=== PATIENT | female | born 1960 | race Caucasian/White ===

== ENCOUNTER 2020-11-25 12:58 | Inpatient (IN) | payer OTHER ==
[2020-11-25] MEDS ORDERED: Ondansetron PF 4 MG/2 ML Vial IVP PRN (14:13)
[2020-11-25] MEDS ORDERED: Dextrose 50% Abboject 50 ML SYRINGE SLOW IVP PRN (14:13)
[2020-11-25] MEDS ORDERED: Ondansetron ODT 4 MG TAB PO PRN (14:13)
[2020-11-25] MEDS ORDERED: HumaLOG 300 UNITS/3 ML VIAL SC PRN (14:13)
[2020-11-25] MEDS ORDERED: Acetaminophen 325 MG TAB PO PRN (14:13)
[2020-11-25] MEDS ORDERED: Dextrose 5% in Water 1,000 ML IV PRN (14:13)
[2020-11-25] MEDS ORDERED: Losartan 25 MG TAB PO SCH (14:15)
[2020-11-25] MEDS ORDERED: hydrALAZINE 20 MG/ML VIAL SLOW IVP PRN ×2 (17:39→17:40)
[2020-11-25 17:49] VITALS: BMI 40.1
[2020-11-25] MEDS: Betamethasone Val 0.1% Lotion 60 ML BOT TOP SCH (19:59)
[2020-11-25] MEDS: Melatonin 3 MG TAB PO PRN (22:22)
[2020-11-26 05:08] LABS: Hemoglobin A1c 8.3 % (4.0-6.0)
[2020-11-26 05:10] LABS: Hemoglobin 14.3 g/dL (12.0-16.0); Mean Corpuscular HGB CONC 32.5 g/dL (32.0-36.0); Mean Corpuscular Hemoglobin 29.5 pg (27.0-31.0); Mean Corpuscular Volume 90.8 fL (78.0-98.0); Mean Platelet Volume 8.6 fL (7.4-10.4); Platelet Count 198 thou/uL (130-400); RBC Distribution Width 11.6 % (11.5-14.5); Red Blood Cell (RBC) Count 4.83 mill/uL (4.20-5.40); White Blood Cell (WBC) Count 10.2 thou/uL (4.8-10.8)
[2020-11-26 05:24] LABS: ALT (SGPT) 29 U/L (8-55); AST (SGOT) 16 U/L (5-34); Albumin 3.8 g/dL (3.4-4.8); Alkaline Phosphatase 101 U/L (40-110); Anion Gap 12 mmol/L (10-20); BUN (Urea Nitrogen) 19 mg/dL (9.8-20.1); Bilirubin, Total 0.7 mg/dL (0.2-1.2); Calc. Creatinine Clearance 116 mL/min (70-130); Calcium 9.9 mg/dL (7.8-10.44); Carbon Dioxide 26 mmol/L (23-31); Cardiac Risk 3.2 (Less than 4.5); Chloride 102 mmol/L (98-107); Cholesterol 194 mg/dl (< 200 Desired); Globulin 2.8 g/dL (2.4-3.5); Glucose 237 mg/dL (80-115); HDL Cholesterol 61 mg/dL (>60 Neg Risk); LDL Cholesterol, Calculated 93 mg/dL; Potassium 3.6 mmol/L (3.5-5.1); Protein, Total 6.6 g/dL (5.8-8.1); Sodium 136 mmol/L (136-145); Triglycerides 198 mg/dL (Less than 150)
[2020-11-26 05:31] LABS: Band 4 % (5-11); Eosinophils 2 % (0-10); Lymphocytes 34 % (21-51); MDiff Complete? YES; Neutrophil 53 % (42-75); Reactive Lymphocytes 6 % (0-10)
[2020-11-26] MEDS: HumaLOG 300 UNITS/3 ML VIAL SC PRN ×2 (05:52→11:26)
[2020-11-26] MEDS: metFORMIN 500 MG TAB PO SCH (08:55)
[2020-11-26] MEDS: Cyclobenzaprine 10 MG TAB PO SCH ×3 (08:56→21:13)
[2020-11-26] MEDS: Aspirin 81 mg Enteric Coated Tablet PO SCH (08:56)
[2020-11-26] MEDS: Betamethasone Val 0.1% Lotion 60 ML BOT TOP SCH ×2 (08:57→21:18)
[2020-11-26] MEDS ORDERED: Losartan 25 MG TAB PO SCH ×2 (09:00→12:45)
[2020-11-26] MEDS ORDERED: glipiZIDE 5 MG TAB PO SCH (12:45)
[2020-11-26] MEDS ORDERED: Atorvastatin Calcium 40 MG TAB PO SCH (21:00)
[2020-11-26] MEDS ORDERED: Atorvastatin Calcium 20 MG TAB PO SCH (21:00)
[2020-11-26] MEDS: Melatonin 3 MG TAB PO PRN (21:18)
[2020-11-27] MEDS: HumaLOG 300 UNITS/3 ML VIAL SC PRN (06:29)
[2020-11-27] MEDS ORDERED: glipiZIDE 5 MG TAB PO SCH (07:30)
[2020-11-27] MEDS: Cyclobenzaprine 10 MG TAB PO SCH (08:23)
[2020-11-27] MEDS: Aspirin 81 mg Enteric Coated Tablet PO SCH (08:23)
[2020-11-27] MEDS: Betamethasone Val 0.1% Lotion 60 ML BOT TOP SCH (08:24)
[2020-11-27] MEDS: metFORMIN 500 MG TAB PO SCH (08:24)
[2020-11-27] MEDS ORDERED: Losartan 25 MG TAB PO SCH (09:00)
[2020-11-27 11:46] VITALS: BP 129/64; TEMP 97.6
== END 2020-11-27 14:05 | disposition home or self-care (01) | DRG 65 ==
LOC: ERS 12:58 → 2SE 13:51
PROVIDERS: ADMIT Family Medicine; ATTEND Family Medicine
DX: I63.81 Other cerebral infarction due to occlusion or stenosis of small artery (principal); I16.1 Hypertensive emergency; G81.92 Hemiplegia, unspecified affecting left dominant side; I10 Essential (primary) hypertension; E11.9 Type 2 diabetes mellitus without complications; Z20.822 Contact with and (suspected) exposure to COVID-19; E78.5 Hyperlipidemia, unspecified; R29.702 NIHSS score 2; Z88.5 Allergy status to narcotic agent; Z79.84 Long term (current) use of oral hypoglycemic drugs; Z79.899 Other long term (current) drug therapy; Z91.120 Patient's intentional underdosing of medication regimen due to financial hardship
CPT/HCPCS: 36415; 36416; 70551; 80053; 80061; 83036; 84443; 85007; 85027; 93306; 96365; J1815

== ENCOUNTER 2024-01-23 19:19 | Inpatient (IN) | payer MEDICARE, SELFPAY ==
[2024-01-23 20:07] LABS: #Basophils 0.08 10x3/uL (0.0-0.2); %Basophils 0.6 % (0.0-1.0); %Lymphocytes 18.7 % (21.0-51.0); %Monocytes 3.7 % (0.0-10.0); %Neutrophils 72.5 % (42.0-75.0); Hematocrit 39.1 % (36.0-47.0); Hemoglobin 13.1 g/dL (12.0-16.0); Mean Corpuscular HGB CONC 33.5 g/dL (32.0-36.0); Mean Corpuscular Hemoglobin 30.8 pg (27.0-31.0); Mean Corpuscular Volume 91.8 fL (78.0-98.0); Mean Platelet Volume 11.7 fL (7.4-10.4); Platelet Count 173 10x3/uL (130-400); Red Blood Cell (RBC) Count 4.26 mill/uL (4.20-5.40)
[2024-01-23 20:22] LABS: INR-International Normal Ratio 0.9; Prothrombin Time 12.6 sec (12.0-14.7)
[2024-01-23 20:23] LABS: ALT (SGPT) 21 U/L (8-55); AST (SGOT) 13 U/L (5-34); Albumin 3.4 g/dL (3.4-4.8); Alkaline Phosphatase 105 U/L (40-110); Anion Gap 18 mmol/L (10-20); BUN (Urea Nitrogen) 17 mg/dL (9.8-20.1); Bilirubin, Total 0.5 mg/dL (0.2-1.2); Calc. Creatinine Clearance 0 mL/min (70-130); Calcium 9.5 mg/dL (7.8-10.44); Carbon Dioxide 25 mmol/L (23-31); Chloride 103 mmol/L (98-107); Estimated GFR 84; Globulin 3.2 g/dL (2.4-3.5); Glucose 218 mg/dL (80-115); PTT 24.1 sec (22.9-36.1); Potassium 3.4 mmol/L (3.5-5.1); Protein, Total 6.6 g/dL (5.8-8.1); Sodium 143 mmol/L (136-145)
[2024-01-23 20:30] LABS: Troponin I Less than 0.010 ng/mL (< 0.028)
[2024-01-23] MEDS ORDERED: Aspirin Chewable 81 MG TAB ONE (21:45)
[2024-01-23] MEDS ORDERED: Glucagon 1 MG/ML KIT IM PRN (22:14)
[2024-01-23] MEDS ORDERED: Ondansetron PF 4 MG/2 ML Vial IVP PRN (22:14)
[2024-01-23] MEDS ORDERED: Dextrose 50% Abboject 50 ML SYRINGE SLOW IVP PRN (22:14)
[2024-01-23] MEDS ORDERED: Ondansetron ODT 4 MG TAB PO PRN (22:14)
[2024-01-23] MEDS ORDERED: Dextrose 5% in Water 1,000 ML IV PRN (22:16)
[2024-01-23 22:35] LABS: Magnesium 1.8 mg/dL (1.6-2.6)
[2024-01-24] MEDS: Potassium Chloride 20 MEQ TAB PO SCH ×2 (00:12→12:46)
[2024-01-24] MEDS: DULoxetine 30 MG CAP PO SCH ×2 (00:12→20:26)
[2024-01-24] MEDS: traZODone HCl 50 MG TAB PO PRN (01:25)
[2024-01-24] MEDS: Insulin Lispro 100 UNIT/ML 10 ML VIAL SC PRN (01:26)
[2024-01-24 01:47] VITALS: BMI 42.4
[2024-01-24 05:28] LABS: #Basophils 0.08 10x3/uL (0.0-0.2); %Basophils 0.6 % (0.0-1.0); %Eosinophils 3.8 % (0.0-10.0); %Lymphocytes 28.2 % (21.0-51.0); %Monocytes 5.3 % (0.0-10.0); %Neutrophils 61.7 % (42.0-75.0); Hematocrit 37.3 % (36.0-47.0); Hemoglobin 12.7 g/dL (12.0-16.0); Mean Corpuscular Hemoglobin 30.2 pg (27.0-31.0); Mean Corpuscular Volume 88.6 fL (78.0-98.0); Mean Platelet Volume 12.3 fL (7.4-10.4); Platelet Count 153 10x3/uL (130-400); RBC Distribution Width 12.1 % (11.5-14.5); Red Blood Cell (RBC) Count 4.21 mill/uL (4.20-5.40)
[2024-01-24 05:41] LABS: Anion Gap 15 mmol/L (10-20); BUN (Urea Nitrogen) 16 mg/dL (9.8-20.1); Calc. Creatinine Clearance 114 mL/min (70-130); Calcium 9.1 mg/dL (7.8-10.44); Carbon Dioxide 25 mmol/L (23-31); Cardiac Risk 2.7 (Less than 4.5); Chloride 104 mmol/L (98-107); Cholesterol 119 mg/dl (< 200 Desired); Estimated GFR 83; Glucose 148 mg/dL (80-115); HDL Cholesterol 44 mg/dL (>60 Neg Risk); LDL Cholesterol, Calculated 49 mg/dL; Potassium 3.4 mmol/L (3.5-5.1); Sodium 141 mmol/L (136-145); Triglycerides 130 mg/dL (Less than 150)
[2024-01-24] MEDS ORDERED: glipiZIDE 5 MG TAB PO SCH (07:30)
[2024-01-24] MEDS ORDERED: Aspirin 81 mg Enteric Coated Tablet PO SCH (09:00)
[2024-01-24] MEDS ORDERED: Electrolyte Replacement Protocol 1 EACH FS SCH (09:45)
[2024-01-24] MEDS ORDERED: Iopamidol 370 76% 100 ML VIAL ONE (11:59)
[2024-01-24] MEDS: Magnesium 2 GM/50 ML(in water) 2 GM in Premix 1 BAG IVPB SCH (12:46)
[2024-01-24] MEDS: Cholecalciferol 1,000 UNITS (25 MCG) TAB PO SCH (12:46)
[2024-01-24] MEDS: Acetaminophen 325 MG TAB PO PRN (12:56)
[2024-01-24 16:33] LABS: Potassium 3.5 mmol/L (3.5-5.1)
[2024-01-24] MEDS: Aspirin 81 mg Enteric Coated Tablet PO SCH (20:24)
[2024-01-24] MEDS: Atorvastatin Calcium 40 MG TAB PO SCH (20:26)
[2024-01-24] MEDS ORDERED: Atorvastatin Calcium 40 MG TAB PO SCH (21:00)
[2024-01-25] MEDS: Potassium Chloride 20 MEQ TAB PO SCH (00:24)
[2024-01-25 04:35] LABS: ALT (SGPT) 22 U/L (8-55); AST (SGOT) 13 U/L (5-34); Albumin 3.3 g/dL (3.4-4.8); Alkaline Phosphatase 105 U/L (40-110); Anion Gap 13 mmol/L (10-20); BUN (Urea Nitrogen) 17 mg/dL (9.8-20.1); Bilirubin, Total 0.8 mg/dL (0.2-1.2); Calc. Creatinine Clearance 117 mL/min (70-130); Calcium 9.2 mg/dL (7.8-10.44); Carbon Dioxide 24 mmol/L (23-31); Chloride 103 mmol/L (98-107); Estimated GFR 86; Globulin 3.1 g/dL (2.4-3.5); Glucose 183 mg/dL (80-115); Magnesium 2.1 mg/dL (1.6-2.6); Potassium 3.9 mmol/L (3.5-5.1); Protein, Total 6.4 g/dL (5.8-8.1); Sodium 136 mmol/L (136-145)
[2024-01-25 05:01] LABS: #Basophils 0.09 10x3/uL (0.0-0.2); %Basophils 0.7 % (0.0-1.0); %Eosinophils 3.4 % (0.0-10.0); %Lymphocytes 30.1 % (21.0-51.0); %Monocytes 3.8 % (0.0-10.0); %Neutrophils 61.6 % (42.0-75.0); Hematocrit 39.2 % (36.0-47.0); Mean Corpuscular HGB CONC 33.2 g/dL (32.0-36.0); Mean Corpuscular Hemoglobin 30.4 pg (27.0-31.0); Mean Corpuscular Volume 91.6 fL (78.0-98.0); Mean Platelet Volume 11.9 fL (7.4-10.4); Platelet Count 181 10x3/uL (130-400); RBC Distribution Width 11.9 % (11.5-14.5); Red Blood Cell (RBC) Count 4.28 mill/uL (4.20-5.40)
[2024-01-25] MEDS: Insulin Lispro 100 UNIT/ML 10 ML VIAL SC PRN (13:30)
[2024-01-26 05:15] LABS: #Basophils 0.09 10x3/uL (0.0-0.2); %Basophils 0.9 % (0.0-1.0); %Eosinophils 4.5 % (0.0-10.0); %Lymphocytes 28.7 % (21.0-51.0); %Monocytes 3.6 % (0.0-10.0); %Neutrophils 61.8 % (42.0-75.0); Hematocrit 39.1 % (36.0-47.0); Hemoglobin 13.3 g/dL (12.0-16.0); Mean Corpuscular Hemoglobin 29.9 pg (27.0-31.0); Mean Corpuscular Volume 87.9 fL (78.0-98.0); Mean Platelet Volume 11.8 fL (7.4-10.4); Platelet Count 142 10x3/uL (130-400); RBC Distribution Width 11.9 % (11.5-14.5); Red Blood Cell (RBC) Count 4.45 mill/uL (4.20-5.40)
[2024-01-26 05:54] LABS: ALT (SGPT) 21 U/L (8-55); AST (SGOT) 14 U/L (5-34); Albumin 3.3 g/dL (3.4-4.8); Alkaline Phosphatase 102 U/L (40-110); Anion Gap 12 mmol/L (10-20); BUN (Urea Nitrogen) 15 mg/dL (9.8-20.1); Bilirubin, Total 0.8 mg/dL (0.2-1.2); Calc. Creatinine Clearance 124 mL/min (70-130); Calcium 9.2 mg/dL (7.8-10.44); Carbon Dioxide 25 mmol/L (23-31); Chloride 103 mmol/L (98-107); Estimated GFR 91; Globulin 3.1 g/dL (2.4-3.5); Glucose 192 mg/dL (80-115); Potassium 3.4 mmol/L (3.5-5.1); Protein, Total 6.4 g/dL (5.8-8.1); Sodium 137 mmol/L (136-145)
[2024-01-26] MEDS: Potassium Chloride 20 MEQ TAB PO SCH (08:51)
[2024-01-27 06:13] LABS: Chloride 106 mmol/L (98-107); Potassium 4.1 mmol/L (3.5-5.1); Sodium 135 mmol/L (136-145)
[2024-01-27 06:14] LABS: Albumin 3.8 g/dL (3.4-4.8); Calcium 9.7 mg/dL (7.8-10.44); Glucose 201 mg/dL (80-115)
[2024-01-27 06:15] LABS: Globulin 3.4 g/dL (2.4-3.5); Protein, Total 7.2 g/dL (5.8-8.1)
[2024-01-27 06:16] LABS: Anion Gap 20 mmol/L (10-20); Carbon Dioxide 13 mmol/L (23-31)
[2024-01-27 06:17] LABS: Alkaline Phosphatase 110 U/L (40-110); Bilirubin, Total 0.8 mg/dL (0.2-1.2)
[2024-01-27 06:18] LABS: Calc. Creatinine Clearance 122 mL/min (70-130); Estimated GFR 90
[2024-01-27 06:19] LABS: BUN (Urea Nitrogen) 15 mg/dL (9.8-20.1)
[2024-01-27 06:20] LABS: ALT (SGPT) 28 U/L (8-55); AST (SGOT) 20 U/L (5-34)
[2024-01-27] MEDS ORDERED: Rocuronium Bromide 10 MG/ML (10ML VIAL) ONE (06:36)
[2024-01-27] MEDS ORDERED: fentaNYL PF 100 MCG/2 ML SYRINGE ONE ×2 (06:36→07:55)
[2024-01-27] MEDS ORDERED: PROPOFOL 20 ML ONE (06:36)
[2024-01-27] MEDS ORDERED: Heparin 5,000 UNITS/ML VIAL ONE (06:44)
[2024-01-27] MEDS ORDERED: EPINEPHrine 1 MG/ML VIAL ONE (06:44)
[2024-01-27] MEDS ORDERED: Bupivacaine PF 0.5% 30 ML VIAL ONE (06:44)
[2024-01-27] MEDS ORDERED: Sodium Chloride 0.9% 100 ML ONE ×2 (07:22→12:36)
[2024-01-27] MEDS ORDERED: CEFAZOLIN 2 GM VIAL ONE ×2 (07:22→12:36)
[2024-01-27] MEDS ORDERED: PHENYLEPHRINE-NS 100 MCG/ML 10 ML SYRINGE ONE ×2 (07:50→08:47)
[2024-01-27] MEDS ORDERED: Phenylephrine 10 MG/ML VIAL ONE (08:03)
[2024-01-27] MEDS ORDERED: Heparin 10,000 UNITS/ 10 ML VIAL ONE (08:04)
[2024-01-27] MEDS ORDERED: Sodium Chloride 0.9% 250 ML 250 ML ONE (08:04)
[2024-01-27] MEDS ORDERED: Sodium Chloride 0.9% 200 ML ONE (08:04)
[2024-01-27] MEDS ORDERED: Protamine Sulfate 50 MG/5 ML VIAL ONE (08:43)
[2024-01-27] MEDS ORDERED: hydrALAZINE 20 MG/ML VIAL ONE ×2 (09:03→09:12)
[2024-01-27] MEDS ORDERED: SUGAMMADEX SODIUM 200 MG/2 ML VIAL ONE ×2 (09:03→09:41)
[2024-01-27] MEDS ORDERED: Ondansetron PF 4 MG/2 ML Vial ONE (09:03)
[2024-01-27] MEDS ORDERED: Metoclopramide HCl 10 MG (2 mL) VIAL ONE (09:03)
[2024-01-27] MEDS ORDERED: fentaNYL 50 mcg/mL 1 mL Vial ONE (09:17)
[2024-01-27] MEDS ORDERED: Ondansetron HCl/PF 4 MG/2 ML Vial IVP PRN (09:26)
[2024-01-27] MEDS ORDERED: Labetalol HCl 100 MG/20 ML VIAL ONE (09:35)
[2024-01-27] MEDS ORDERED: CEFAZOLIN 2 GM in Sodium Chloride 0.9% 100 ML IVPB SCH (12:26)
[2024-01-27] MEDS ORDERED: Nitroglycerin 50 MG/250 ML BOT 250 ML IVPB PRN (12:26)
[2024-01-27] MEDS ORDERED: Ondansetron PF 4 MG/2 ML Vial IVP PRN (12:26)
[2024-01-27] MEDS ORDERED: fentaNYL 50 mcg/mL 1 mL Vial SLOW IVP PRN (12:26)
[2024-01-27] MEDS ORDERED: Ipratropium/Albuterol 3 ML NEB NEB PRN (12:26)
[2024-01-27] MEDS ORDERED: HumaLOG 300 UNITS/3 ML VIAL ONE (12:33)
[2024-01-27] MEDS ORDERED: Meperidine HCl/PF 25 MG (1 mL) VIAL ONE (13:25)
[2024-01-27] MEDS: Sodium Chloride 0.9% 1,000 ML IV SCH (13:50)
[2024-01-27] MEDS ORDERED: Phenylephrine 40 MG/NS 250 ML 40 MG in Premix 1 BAG IVPB PRN (14:16)
[2024-01-27] MEDS: Ipratropium/Albuterol 3 ML NEB NEB SCH (14:19)
[2024-01-27] MEDS: traMADol HCl 50 MG TAB PO PRN (15:06)
[2024-01-27] MEDS: Labetalol HCl 100 MG/20 ML VIAL SLOW IVP PRN (20:08)
[2024-01-27] MEDS: CEFAZOLIN 2 GM in Sodium Chloride 0.9% 100 ML IVPB SCH (22:19)
[2024-01-28 10:21] LABS: #Basophils 0.06 10x3/uL (0.0-0.2); %Basophils 0.4 % (0.0-1.0); %Eosinophils 2.2 % (0.0-10.0); %Lymphocytes 20.1 % (21.0-51.0); %Monocytes 4.2 % (0.0-10.0); %Neutrophils 72.5 % (42.0-75.0); Hematocrit 36.3 % (36.0-47.0); Mean Corpuscular HGB CONC 33.1 g/dL (32.0-36.0); Mean Corpuscular Hemoglobin 30.6 pg (27.0-31.0); Mean Corpuscular Volume 92.6 fL (78.0-98.0); Mean Platelet Volume 11.2 fL (7.4-10.4); Platelet Count 147 10x3/uL (130-400); RBC Distribution Width 12.5 % (11.5-14.5); Red Blood Cell (RBC) Count 3.92 mill/uL (4.20-5.40)
[2024-01-28 10:36] LABS: ALT (SGPT) 19 U/L (8-55); AST (SGOT) 12 U/L (5-34); Alkaline Phosphatase 98 U/L (40-110); Anion Gap 14 mmol/L (10-20); BUN (Urea Nitrogen) 11 mg/dL (9.8-20.1); Bilirubin, Total 0.6 mg/dL (0.2-1.2); Calc. Creatinine Clearance 111 mL/min (70-130); Calcium 8.4 mg/dL (7.8-10.44); Carbon Dioxide 23 mmol/L (23-31); Chloride 103 mmol/L (98-107); Estimated GFR 84; Glucose 208 mg/dL (80-115); Potassium 3.6 mmol/L (3.5-5.1); Sodium 136 mmol/L (136-145)
[2024-01-28] MEDS ORDERED: Clopidogrel Bisulfate 75 MG TAB PO SCH (14:57)
[2024-01-28] MEDS: Clopidogrel Bisulfate 75 MG TAB PO SCH (16:05)
[2024-01-28] MEDS: hydrALAZINE 20 MG/ML VIAL SLOW IVP PRN (20:46)
[2024-01-29 06:29] LABS: #Basophils 0.05 10x3/uL (0.0-0.2); %Basophils 0.4 % (0.0-1.0); %Eosinophils 2.1 % (0.0-10.0); %Lymphocytes 16.6 % (21.0-51.0); %Monocytes 3.9 % (0.0-10.0); %Neutrophils 76.5 % (42.0-75.0); Hematocrit 35.7 % (36.0-47.0); Hemoglobin 11.8 g/dL (12.0-16.0); Mean Corpuscular HGB CONC 33.1 g/dL (32.0-36.0); Mean Corpuscular Hemoglobin 30.5 pg (27.0-31.0); Mean Corpuscular Volume 92.2 fL (78.0-98.0); Mean Platelet Volume 11.3 fL (7.4-10.4); Platelet Count 146 10x3/uL (130-400); RBC Distribution Width 12.6 % (11.5-14.5); Red Blood Cell (RBC) Count 3.87 mill/uL (4.20-5.40)
[2024-01-29 06:48] LABS: ALT (SGPT) 16 U/L (8-55); AST (SGOT) 11 U/L (5-34); Alkaline Phosphatase 96 U/L (40-110); Anion Gap 11 mmol/L (10-20); BUN (Urea Nitrogen) 10 mg/dL (9.8-20.1); Bilirubin, Total 0.8 mg/dL (0.2-1.2); Calc. Creatinine Clearance 121 mL/min (70-130); Calcium 8.9 mg/dL (7.8-10.44); Carbon Dioxide 25 mmol/L (23-31); Chloride 106 mmol/L (98-107); Estimated GFR 93; Globulin 3.1 g/dL (2.4-3.5); Glucose 222 mg/dL (80-115); Potassium 3.8 mmol/L (3.5-5.1); Protein, Total 6.1 g/dL (5.8-8.1); Sodium 138 mmol/L (136-145)
[2024-01-29] MEDS: Clopidogrel Bisulfate 75 MG TAB PO SCH (10:40)
[2024-01-29] MEDS: Losartan 25 MG TAB PO SCH (16:31)
[2024-01-30 04:52] LABS: #Basophils 0.04 10x3/uL (0.0-0.2); %Basophils 0.4 % (0.0-1.0); %Eosinophils 3.2 % (0.0-10.0); %Lymphocytes 22.5 % (21.0-51.0); %Monocytes 4.8 % (0.0-10.0); %Neutrophils 68.5 % (42.0-75.0); Hematocrit 36.3 % (36.0-47.0); Mean Corpuscular HGB CONC 33.1 g/dL (32.0-36.0); Mean Corpuscular Hemoglobin 29.9 pg (27.0-31.0); Mean Corpuscular Volume 90.3 fL (78.0-98.0); Mean Platelet Volume 11.6 fL (7.4-10.4); Platelet Count 147 10x3/uL (130-400); RBC Distribution Width 12.4 % (11.5-14.5); Red Blood Cell (RBC) Count 4.02 mill/uL (4.20-5.40)
[2024-01-30 05:24] LABS: ALT (SGPT) 14 U/L (8-55); AST (SGOT) 10 U/L (5-34); Albumin 2.8 g/dL (3.4-4.8); Alkaline Phosphatase 97 U/L (40-110); Anion Gap 12 mmol/L (10-20); BUN (Urea Nitrogen) 12 mg/dL (9.8-20.1); Bilirubin, Total 0.8 mg/dL (0.2-1.2); Calc. Creatinine Clearance 126 mL/min (70-130); Calcium 8.7 mg/dL (7.8-10.44); Carbon Dioxide 22 mmol/L (23-31); Chloride 106 mmol/L (98-107); Estimated GFR 96; Glucose 208 mg/dL (80-115); Potassium 3.6 mmol/L (3.5-5.1); Protein, Total 5.8 g/dL (5.8-8.1); Sodium 136 mmol/L (136-145)
[2024-01-30] MEDS: metFORMIN 500 MG TAB PO SCH ×2 (13:15→17:38)
[2024-01-30] MEDS: Losartan 25 MG TAB PO SCH (13:16)
[2024-01-30] MEDS: Acetaminophen 325 MG TAB PO PRN (22:02)
[2024-01-31 17:36] VITALS: BP 144/76; TEMP 97.6
[2024-02-01 09:55] VITALS: BMI 40.8
== END 2024-01-31 21:25 | disposition home or self-care (01) | DRG 38 ==
LOC: ERS 19:19 → 2SE 21:18 → OBSVTOIN 01-24 15:22 → CCU 01-27 06:50 → 2SE 01-28 12:28
PROVIDERS: ADMIT Student in an Organized Health Care Education/Training Program; ATTEND Internal Medicine
PROC: 03CL0ZZ Extirpation of Matter from Left Internal Carotid Artery, Open Approach (ICD-10-PCS; principal; 2024-01-27)
PROC: 03CJ0ZZ Extirpation of Matter from Left Common Carotid Artery, Open Approach (ICD-10-PCS; 2024-01-27)
PROC: 03UJ0KZ Supplement Left Common Carotid Artery with Nonautologous Tissue Substitute, Open Approach (ICD-10-PCS; 2024-01-27)
PROC: 03UL0KZ Supplement Left Internal Carotid Artery with Nonautologous Tissue Substitute, Open Approach (ICD-10-PCS; 2024-01-27)
DX: I63.9 Cerebral infarction, unspecified (principal); G81.94 Hemiplegia, unspecified affecting left nondominant side; E11.9 Type 2 diabetes mellitus without complications; I10 Essential (primary) hypertension; E87.6 Hypokalemia; I65.22 Occlusion and stenosis of left carotid artery; Z88.8 Allergy status to other drugs, medicaments and biological substances; Z79.82 Long term (current) use of aspirin; Z79.84 Long term (current) use of oral hypoglycemic drugs; Z79.4 Long term (current) use of insulin
CPT/HCPCS: 36415; 36416; 70450; 70498; 70551; 80048; 80053; 80061; 83735; 84443; 84484; 85025; 85610; 85730; 93005; 93306; 93880; 94640; C1768; J0171; J0360; J0665; J1642; J1644; J1815; J2175; J2371; J2405; J2704; J2720; J2765; J3010; J3475; J3490; J7050; J7620; Q9967